=== PATIENT | male | born 1980 | race Caucasian/White ===

== ENCOUNTER 2021-11-20 13:55 | Emergency (ER) | payer MEDICARE, OTHER ==
[~2021-11-20] VITALS: Ht 180.3 cm; Wt 83.9 kg
[2021-11-20] MEDS ORDERED: GABA300C PO (14:49)
[2021-11-20] MEDS ORDERED: IBUP-1955 PO (14:49)
[2021-11-20 14:57] VITALS: BP 122/80
== END 2021-11-20 14:57 | disposition home or self-care (01) ==
LOC: ER 13:59
DX: K08.89 Other specified disorders of teeth and supporting structures (principal); H91.3 Deaf nonspeaking, not elsewhere classified
CPT/HCPCS: A4663